=== PATIENT | male | born 1955 | race Two or more races ===

== ENCOUNTER 2019-01-16 06:52 | Inpatient (IN) | payer MEDICAID, OTHER ==
[~2019-01-16] VITALS: Ht 167.6 cm; Wt 60.9 kg
[2019-01-16] MEDS ORDERED: MAGN200T11 PO (07:31)
[2019-01-16] MEDS ORDERED: BENA20TA14 PO (07:31)
[2019-01-16] MEDS ORDERED: HYDR-4833 PO (07:31)
[2019-01-16] MEDS ORDERED: CHOL20007 PO (07:31)
[2019-01-16] MEDS ORDERED: AMI25T PO (07:31)
[2019-01-16 07:49] LABS: Basophils # (auto) 0 uL; Basophils % (auto) 0.5 % (0.0-2.0); Eosinophils # (auto) 0 uL; Eosinophils % (auto) 0.3 % (0.0-7.0); Hematocrit 47.6 % (41.0-53.0); Hemoglobin 16.1 g/dL (13.5-17.5); Lymphocytes # (auto) 0.5 uL; Lymphocytes % (auto) 4.7 % (10.0-50.0); Mean Corpuscular Hemoglobin 31.1 pg (28.0-32.0); Mean Corpuscular Hgb Conc. 33.7 g/dL (32.0-36.0); Mean Corpuscular Volume 92.1 fL (80.0-100.0); Monocytes # (auto) 0.4 uL; Monocytes % (auto) 3.5 % (0.0-12.0); Neutrophils # (auto) 9.3 uL; Nucleated Red Blood Cells % 0.1 %; Platelet Count (auto) 193 10^3/uL (140-450); Red Blood Cells 5.17 10^6/uL (4.5-5.90); Red Cell Distribution Width 13.4 % (11.8-14.3); White Blood Cell 10.2 10^3/uL (4.4-10.8)
[2019-01-16 07:58] LABS: INR 1.01 (0.9-1.15); Partial Thromboplastin Time 22.5 sec (23.64-32.05)
[2019-01-16 08:00] LABS: Alanine Aminotransferase 28 U/L (16-61); Amylase 125 U/L (25-115); Anion Gap 6 (5-15); Aspartate Aminotransferase 24 U/L (15-37); BUN/Creatinine Ratio 22.2; Blood Urea Nitrogen 18 mg/dL (7-18); Calcium 8.8 mg/dL (8.5-10.1); Carbon Dioxide 31 mmol/L (21-32); Chloride 103 mmol/L (98-107); GFR African American 125 mL/min; GFR Non-African American 103 mL/min; Glucose 135 mg/dL (74-106); Lipase 75 U/L (73-393); Magnesium 2.4 mg/dL (1.6-2.6); Potassium 3.7 mmol/L (3.5-5.1); Sodium 140 mmol/L (136-145)
[2019-01-16 08:05] LABS: Alkaline Phosphatase 77 U/L (45-117); Bilirubin, Total 0.7 mg/dL (0.2-1.0); Total Protein 7.8 g/dL (6.4-8.2)
[2019-01-16 08:07] LABS: Urine Bacteria NONE SEEN /hpf (None Seen); Urine Blood Negative /uL (Negative); Urine Hyaline Cast FEW /lpf (0 - 2); Urine Mucus FEW (None Seen); Urine Specific Gravity 1.025 (1.001-1.035); Urine WBC 1 /hpf (0 - 3)
[2019-01-16] MEDS ORDERED: PIPERACILLIN-TAZOB 3.375GM 100 ML IV ONE (08:15)
[2019-01-16] MEDS ORDERED: ONDANSETRON HCL 4 MG/2 ML VIAL IV ONE (08:15)
[2019-01-16] MEDS ORDERED: metroNIDAZOLE 500MG/100ML 100 ML IV ONE (08:15)
[2019-01-16] MEDS ORDERED: MORPHINE SULFATE 4 MG/ML SYR/VIAL IV ONE (08:15)
[2019-01-16] MEDS ORDERED: BENZOCAINE (DENTAL) 20 % SPRAY 60ML MT ONE ×2 (09:18→09:30)
[2019-01-16] MEDS ORDERED: IOHEXOL 350 MG/ML 100ML IJ ONE (09:33)
[2019-01-16] MEDS ORDERED: cefTRIAXone 1GM/50ML D5W 50 ML IV ONE (11:15)
[2019-01-16] MEDS ORDERED: DEXTROSE (50%) 50ML SYRG IV PRN (11:15)
[2019-01-16] MEDS ORDERED: MORPHINE SULF INJ 2 MG/ML SYRINGE 1ML IV PRN (11:15)
[2019-01-16] MEDS ORDERED: NITROGLYCERIN 0.4 MG SL TAB SL PRN (11:15)
[2019-01-16] MEDS ORDERED: MORPHINE SULFATE 4 MG/ML SYR/VIAL IV PRN (11:15)
[2019-01-16] MEDS: SODIUM CHLORIDE 0.9% 1,000 ML IV SCH ×2 (11:57→18:51)
--- NOTE | 2019-01-16 12:15 | NUR ---
Telemetry admit from ER KYLER JANG admitted to Telemetry unit after SBAR received. Patient oriented to NAE CAREY, primary RN, unit, room, bed, and unit policies regarding patient care and visiting hours. Patient now on continuous telemetry monitoring. Patient placed on bedside SUCTION TO NGT, weighed by bedscale and encouraged to call if they need something. All questions and concerns addressed, patient verbalized understanding.
[2019-01-16] MEDS: metroNIDAZOLE 500MG/100ML 100 ML IV SCH ×2 (12:56→21:19)
[2019-01-16] MEDS: ACCU-CHEK COMFORT CURVE STRIP VI SCH ×2 (12:57→18:51)
[2019-01-16 13:02] VITALS: BP 138/93
[2019-01-16] MEDS ORDERED: AMIT25TA9 PO (14:08)
[2019-01-16] MEDS ORDERED: HYDR-4069 PO (14:08)
[2019-01-16] MEDS: PROMETHAZINE HCL 25 MG/ML 1ML IV PRN ×2 (15:03→19:47)
[2019-01-16 17:00] VITALS: BP 135/93
--- NOTE | 2019-01-16 19:26 | NUR ---
Opening Shift Note Assumed care of patient, awake and alert x 4. No S/S of distress/SOB though patient does report nausea. Will provide PRN antiemetic per MD order. Bed is in lowest position and locked. Call light within reach. Board updated. Tele box number matches monitor and leads are in correct placement. NS infusing at 150 ml/hr. NG tube to right nare is patent and in correct position, per auscultation assessment. NG tube connected to low intermittent suction. Instructed on POC and to call for assist PRN, will continue to monitor for changes Q1hr and PRN.
[2019-01-16] MEDS: FAMOTIDINE (10MG/ML) 2ML VL IV SCH (21:19)
[2019-01-16 22:00] VITALS: BP 133/94
[2019-01-17] MEDS: ACCU-CHEK COMFORT CURVE STRIP VI SCH ×4 (00:06→18:00)
[2019-01-17] MEDS: SODIUM CHLORIDE 0.9% 1,000 ML IV SCH ×2 (00:06→05:59)
[2019-01-17] MEDS: PROMETHAZINE HCL 25 MG/ML 1ML IV PRN (04:30)
[2019-01-17 05:45] VITALS: BP 157/99
[2019-01-17 05:48] LABS: Basophils # (auto) 0.1 uL; Basophils % (auto) 0.7 % (0.0-2.0); Eosinophils # (auto) 0.1 uL; Eosinophils % (auto) 0.8 % (0.0-7.0); Hematocrit 41.4 % (41.0-53.0); Hemoglobin 14.2 g/dL (13.5-17.5); Lymphocytes # (auto) 0.7 uL; Lymphocytes % (auto) 9.5 % (10.0-50.0); Mean Corpuscular Hemoglobin 31.6 pg (28.0-32.0); Mean Corpuscular Hgb Conc. 34.4 g/dL (32.0-36.0); Mean Corpuscular Volume 91.9 fL (80.0-100.0); Monocytes # (auto) 0.4 uL; Monocytes % (auto) 5.5 % (0.0-12.0); Neutrophils # (auto) 6.1 uL; Neutrophils % (auto) 83.5 % (37.0-80.0); Platelet Count (auto) 160 10^3/uL (140-450); Red Blood Cells 4.51 10^6/uL (4.5-5.90); Red Cell Distribution Width 13.1 % (11.8-14.3); White Blood Cell 7.3 10^3/uL (4.4-10.8)
[2019-01-17] MEDS: metroNIDAZOLE 500MG/100ML 100 ML IV SCH ×3 (05:59→22:33)
[2019-01-17 06:05] LABS: Potassium 3.1 mmol/L (3.5-5.1)
[2019-01-17 06:10] LABS: Albumin 3.2 g/dL (3.4-5.0); BUN/Creatinine Ratio 14.5; Calcium 7.6 mg/dL (8.5-10.1)
[2019-01-17] MEDS: MORPHINE SULFATE 4 MG/ML SYR/VIAL IV PRN ×2 (06:10→12:13)
[2019-01-17 06:13] LABS: Bilirubin, Total 0.7 mg/dL (0.2-1.0); Total Protein 6.1 g/dL (6.4-8.2)
--- NOTE | 2019-01-17 07:58 | NUR ---
Morning note Opening Shift Note Assumed care of patient, resting with eyes closed, respiration are even and unlabored. No S/S of distress noted. Bed in lowest position, breaks locked, side rails up x2, call light with in reach. NG tube connected to LIS 55cm at the right bertha. Will continue to monitor q 1hr and prn.
[2019-01-17] MEDS: cefTRIAXone 1GM/50ML D5W 50 ML IV SCH (08:58)
[2019-01-17] MEDS: FAMOTIDINE (10MG/ML) 2ML VL IV SCH ×2 (08:58→22:33)
[2019-01-17 09:00] VITALS: BP 152/92
[2019-01-17] MEDS: ENOXAPARIN SOD 40 MG/0.4 ML SYRINGE SC SCH (10:00)
--- NOTE | 2019-01-17 11:20 | NUR ---
DOCTOR ARABELLA NELSON. AWARE THAT LOVENOX WAS HELD TODAY. PER ARABELLA OKAY TO HOLD LOVENOX FOR TODAY ONLY.
[2019-01-17] MEDS ORDERED: ONDANSETRON HCL 4 MG/2 ML VIAL IV PRN (11:30)
[2019-01-17] MEDS ORDERED: D5W/ SOD CHL 0.9%/KCL 20MEQ 1,000 ML IV ONE (11:30)
[2019-01-17] MEDS: POTASSIUM CHL 20MEQ/100ML 100 ML IV SCH ×2 (12:01→19:56)
[2019-01-17] MEDS ORDERED: D5W/SOD CHL 0.45%/KCL 40MEQ 1,000 ML IV ONE (12:30)
[2019-01-17] MEDS ORDERED: GASTROGRAFIN 120 ML SOL ONE (12:52)
[2019-01-17 13:00] VITALS: BP 147/92
--- NOTE | 2019-01-17 13:00 | NUR ---
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
--- NOTE | 2019-01-17 13:15 | NUR ---
NG-Tube Received call from radiology, NG tube needs to be advancement 8 cm. NG now at 60cm at the bertha .
--- NOTE | 2019-01-17 15:10 | NUR ---
PATIENT BACK FROM RADIOLOGY.
--- NOTE | 2019-01-17 15:15 | NUR ---
Patient restarted on potassium rider.
[2019-01-17 17:00] VITALS: BP 159/95
--- NOTE | 2019-01-17 17:00 | NUR ---
IV insertion IV access obtained, via clean sterile technique by inserting 20 gauge catheter at right forearm after 1 attempt. IV secured properly. No trauma to site. Patient tolerated well.
--- NOTE | 2019-01-17 18:00 | NUR ---
Call pharmacy unable to pull second bag of potassium rider. Pharmacy aware per pharmacist will put medication in medication Pyxis.
[2019-01-17] MEDS ORDERED: POTASSIUM CHL 20MEQ/100ML 100 ML IV SCH (18:30)
--- NOTE | 2019-01-17 18:45 | NUR ---
Call pharmacy again still unable to pull second bag of potassium rider. Per pharmacist medication is in medication Pyxis per pharmacy give it time to update.
--- NOTE | 2019-01-17 19:30 | NUR ---
CALLED PHARMACY POTASSIUM RIDER STILL UNABLE TO BE PULLED FROM MEDICATION PYXIS. PER PHARMACY WILL SEND MEDICATION UP.
--- NOTE | 2019-01-17 19:50 | NUR ---
open note assumed care of pt, awake, alert and oriented x4 upon entering room. pt on room air no distress noted or expressed. pt denies any pain at this time. pt has NGT to left nare connected to wall suction at [facility]. pt updated on plan of care, no questions at this time. pt bed locked, low and 2x rails up. call light in reach, will round q1hr and prn.
[2019-01-17 22:00] VITALS: BP 151/97
[2019-01-18] MEDS: ACCU-CHEK COMFORT CURVE STRIP VI SCH ×4 (00:35→18:00)
[2019-01-18 05:16] VITALS: BP 121/79
[2019-01-18 05:22] LABS: Basophils # (auto) 0 uL; Basophils % (auto) 0.6 % (0.0-2.0); Eosinophils # (auto) 0.1 uL; Eosinophils % (auto) 1.6 % (0.0-7.0); Hematocrit 42.4 % (41.0-53.0); Hemoglobin 14.4 g/dL (13.5-17.5); Lymphocytes # (auto) 0.7 uL; Lymphocytes % (auto) 18.9 % (10.0-50.0); Mean Corpuscular Hemoglobin 31.1 pg (28.0-32.0); Mean Corpuscular Volume 91.5 fL (80.0-100.0); Monocytes # (auto) 0.3 uL; Monocytes % (auto) 7.6 % (0.0-12.0); Neutrophils # (auto) 2.8 uL; Neutrophils % (auto) 71.3 % (37.0-80.0); Nucleated Red Blood Cells % 0.1 %; Platelet Count (auto) 174 10^3/uL (140-450); Red Blood Cells 4.63 10^6/uL (4.5-5.90); Red Cell Distribution Width 13.3 % (11.8-14.3)
--- NOTE | 2019-01-18 05:30 | NUR ---
NGT 100ML of dark green, bilious fluid on my shift.
[2019-01-18 05:40] LABS: BUN/Creatinine Ratio 15.7; Potassium 3.3 mmol/L (3.5-5.1)
[2019-01-18] MEDS: metroNIDAZOLE 500MG/100ML 100 ML IV SCH ×3 (06:29→22:13)
--- NOTE | 2019-01-18 07:30 | NUR ---
Opening Shift Note Assumed care of patient, awake and alert. No S/S of distress/SOB or pain. Instructed on POC and to call for assist PRN, will continue to monitor for changes Q1hr and PRN. Fall risk precautions in place per safety protocol.
[2019-01-18 08:29] VITALS: BP 145/93
[2019-01-18] MEDS: cefTRIAXone 1GM/50ML D5W 50 ML IV SCH (09:41)
[2019-01-18] MEDS: FAMOTIDINE (10MG/ML) 2ML VL IV SCH ×2 (09:41→22:13)
[2019-01-18] MEDS: ENOXAPARIN SOD 40 MG/0.4 ML SYRINGE SC SCH (09:42)
--- NOTE | 2019-01-18 12:20 | NUR ---
Hospitalist at bedside MD. Winters at bedside, aware of patient status. Orders to cont fluids at 60ml/hr received. Will cont to monitor patient.
[2019-01-18] MEDS: D5W/ SOD CHL 0.9%/KCL 20MEQ 1,000 ML IV SCH (13:00)
[2019-01-18 13:02] VITALS: BP 138/100
--- NOTE | 2019-01-18 13:58 | NUR ---
Spoke to Hospitalist Spoke to MD. Winters about patient plan of care, per MD Sinclair, no surgery is needed at this time. New orders to DC NG Tube and advance diet to clear diet. Will carry out orders and cont to care for patient.
--- NOTE | 2019-01-18 14:04 | NUR ---
NUTRITION ASSESSMENT NOTES Please refer to link notes of nutrition screen form filed under the intervention section of the plan of care for further details. Est. Needs: 1550 kcal to 1850 kcal (25-30 kcal/kgBW), 62 gms to 74 gms pro (0.8-1.0 gms/kgBW). Will continue to monitor pertinent labs and reassess nutrient need prn Thank you. Addendum: 01/18/19 at [address] Amended: Links added.
[2019-01-18] MEDS ORDERED: POTASSIUM EFFERVESENT TAB 25 MEQ PO ONE (15:15)
[2019-01-18] MEDS ORDERED: MORPHINE SULF INJ 2 MG/ML SYRINGE 1ML IV PRN (15:30)
--- NOTE | 2019-01-18 16:00 | NUR ---
NG Tube removed NG Tube removed as orders. Patient tolerated well, no signs of distress/sob or pain noted. Output was 100 mls. Will cont to monitor patient.
[2019-01-18 16:55] VITALS: BP 138/88
--- NOTE | 2019-01-18 19:22 | NUR ---
Care endorsed Patient care endorsed to JUAN CARLOS Ball. No distress/sob or pain noted at this time.
--- NOTE | 2019-01-18 20:00 | NUR ---
open note assumed care of pt. upon entering room pt awake, alert and oriented x4. pt has collateral at bedside. pt on room air no distress noted or expressed. pt denies any pain or nausea at this time. pt updated on plan of care, no questions at this time. pt bed locked, low and 2x rails up. call light in reach, will round q1hr and prn. pt encouraged to call as needed.
[2019-01-18 21:43] VITALS: BP 137/97
[2019-01-19] MEDS: ACCU-CHEK COMFORT CURVE STRIP VI SCH ×3 (01:09→12:03)
[2019-01-19 04:45] VITALS: BP 154/93
[2019-01-19] MEDS: D5W/ SOD CHL 0.9%/KCL 20MEQ 1,000 ML IV SCH (05:52)
[2019-01-19] MEDS: metroNIDAZOLE 500MG/100ML 100 ML IV SCH (05:52)
[2019-01-19 05:54] LABS: Basophils # (auto) 0 uL; Eosinophils # (auto) 0.1 uL; Eosinophils % (auto) 3.8 % (0.0-7.0); Hematocrit 41.5 % (41.0-53.0); Hemoglobin 14.2 g/dL (13.5-17.5); Lymphocytes % (auto) 25.4 % (10.0-50.0); Mean Corpuscular Hemoglobin 31.1 pg (28.0-32.0); Mean Corpuscular Hgb Conc. 34.3 g/dL (32.0-36.0); Mean Corpuscular Volume 90.7 fL (80.0-100.0); Monocytes # (auto) 0.4 uL; Monocytes % (auto) 9.4 % (0.0-12.0); Neutrophils # (auto) 2.3 uL; Neutrophils % (auto) 60.4 % (37.0-80.0); Nucleated Red Blood Cells % 0.1 %; Platelet Count (auto) 181 10^3/uL (140-450); Red Blood Cells 4.58 10^6/uL (4.5-5.90); Red Cell Distribution Width 12.7 % (11.8-14.3); White Blood Cell 3.7 10^3/uL (4.4-10.8)
[2019-01-19 06:23] LABS: Calcium 8.3 mg/dL (8.5-10.1); Potassium 3.5 mmol/L (3.5-5.1)
[2019-01-19 06:26] LABS: BUN/Creatinine Ratio 11.3
[2019-01-19 09:00] VITALS: BP 139/89
[2019-01-19] MEDS: cefTRIAXone 1GM/50ML D5W 50 ML IV SCH (09:29)
[2019-01-19] MEDS: FAMOTIDINE (10MG/ML) 2ML VL IV SCH (09:29)
[2019-01-19] MEDS: ENOXAPARIN SOD 40 MG/0.4 ML SYRINGE SC SCH (09:29)
--- NOTE | 2019-01-19 12:25 | NUR ---
Hospitalist at bedside MD Winters at bedside, aware of patient status. New orders to D/C fluids and advance diet as tolerated received at this time. Will carry put new orders and will cont to monitor patient.
[2019-01-19 13:00] VITALS: BP 129/81
[2019-01-19 17:00] VITALS: BP 125/74
--- NOTE | 2019-01-19 19:13 | NUR ---
Endorsed care Care endorsed care to JUAN CARLOS Bradshaw. Patient shows no signs of distress, sob, or pain at this time. Addendum: 01/19/19 at 1918 by LUKE MARINO RN RN JUAN CARLOS Bradshaw will discharge patient at this time after patient has tolerated dinner per MD. Winters request "dc patient once dinner tolerated." JUAN CARLOS BRADSHAW will review discharge orders and follow up instructions with patient and obtain necessary signatures.
--- NOTE | 2019-01-19 19:50 | NUR ---
Discharge instructions given as ordered. Encourage to follow up with PMD as instructed. All questions and concerns addressed. Patient verbalized understanding. Medication reconciliation form completed and copy given to patient. Home medications held in Pharmacy returned to patient, and needed vaccines given. IV removed with catheter intact, pressure dressing applied, woods catheter removed. Telemetry unit returned to ICU. Patient taken to vehicle via wheelchair with all personal belongings, accompanied by staff and family member. No distress noted at time of departure.
== END 2019-01-19 19:50 | disposition home or self-care (01) | DRG 249 ==
LOC: ER 06:52 → TELE 06:53 → TELE-WESTW 12:26
PROVIDERS: ADMIT Internal Medicine; ATTEND Internal Medicine Nephrology
DX: K52.9 Noninfective gastroenteritis and colitis, unspecified (principal); K76.89 Other specified diseases of liver; E87.6 Hypokalemia; I10 Essential (primary) hypertension; N32.3 Diverticulum of bladder; R73.9 Hyperglycemia, unspecified; Z83.3 Family history of diabetes mellitus; Z80.3 Family history of malignant neoplasm of breast; N40.0 Benign prostatic hyperplasia without lower urinary tract symptoms; R11.2 Nausea with vomiting, unspecified
CPT/HCPCS: 36415; 71045; 71046; 74176; 74177; 74250; 80048; 80053; 81001; 82150; 82962; 83036; 83605; 83690; 83735; 84154; 84484; 85025; 85610; 85730; 87040; 93005; 99291; G0378; J0696; J2405; J2543; J3480; J3490